=== PATIENT | male | born 1985 | race Caucasian/White ===

== ENCOUNTER 2016-12-03 18:00 | Emergency (ER) | payer OTHER ==
[~2016-12-03] VITALS: Wt 61.2 kg
[~2016-12-03 18:00] MED LIST: AMOXICILLIN500 MG PO; BENADRYL25 MG PO; CLONIDINE HCL0.1 MG; FIORICET 50-301 EACH PO; HALDOL0.5 MG; LITHIUM CARBON300 MG; MOTRIN800 MG PO; NAPROSYN500 MG PO; NKHM; NORCO 325 MG-51 TAB PO; TESSALON PERLE200 MG PO; VIBRAMYCIN100 MG PO; ZITHROMAX Z PA250 MG PO
[2016-12-03] MEDS ORDERED: SILVADENE20 GM T (19:26)
[2016-12-03] MEDS ORDERED: NORCO 5-325 TA1 EACH PO (19:26)
[2016-12-03] MEDS ORDERED: SILVADENE,SSD C50 GM T (19:28)
== END 2016-12-03 18:42 | disposition home or self-care (01) ==
LOC: ED 18:00
DX: T23.272A Burn of second degree of left wrist, initial encounter (principal); F17.200 Nicotine dependence, unspecified, uncomplicated; X12.XXXA Contact with other hot fluids, initial encounter; Y93.G3 Activity, cooking and baking; Y92.098 Other place in other non-institutional residence as the place of occurrence of the external cause; Y99.9 Unspecified external cause status

== ENCOUNTER 2016-12-06 21:45 | Emergency (ER) | payer OTHER ==
[~2016-12-06] VITALS: Ht 170.1 cm; Wt 61.2 kg
[~2016-12-06 21:45] MED LIST changes: -CEPHALEXIN500 M1 PO
[2016-12-06 22:36] LABS: BASO % 0.3 % (0.0-1.0); EOS # 0.1 10*3/uL (0.0-0.4); HEMATOCRIT 45.7 % (42.0-52.0); HEMOGLOBIN 16.2 g/dl (14.0-18.0); LYMPH # 3.1 10*3/uL (1.3-4.4); LYMPH % 25.7 % (27.0-41.0); MEAN CELL VOLUME 88.6 fl (80.0-94.0); MEAN CORPUSCULAR HGB 31.4 pg (27.0-31.0); MEAN CORPUSCULAR HGB CONC 35.4 g/dl (33.0-37.0); MEAN PLATELET VOLUME 10.2 fl (9.6-12.3); MONO # 0.9 10*3/uL (0.1-1.0); MONO % 7.2 % (3.0-9.0); NEUT # 7.9 10*3/uL (2.3-7.9); NEUT % 65.4 % (47.0-73.0); PLATELET COUNT AUTOMATED 213 10*3/uL (130-400); RED BLOOD COUNT 5.16 10*6/uL (4.50-5.90); RED CELL DISTRI WIDTH 12.3 % (0-14.5); WHITE BLOOD COUNT 12.1 10*3/uL (4.8-10.8)
[2016-12-06 22:49] LABS: ALBUMIN 4.2 gm/dl (3.1-4.5); ALKALINE PHOSPHATASE 74 U/L (45-117); BUN 14 mg/dl (7-24); CHLORIDE 104 mmol/L (98-107); CREATININE 1.05 mg/dL (0.70-1.30); POTASSIUM 4.7 mmol/L (3.5-5.1); SGOT/AST 16 IU/L (3-35); SGPT/ALT 17 U/L (12-78); SODIUM 139 mmol/L (136-145)
[2016-12-06] MEDS ORDERED: CEPHALEXIN500 M1 PO (23:03)
== END 2016-12-06 23:28 | disposition home or self-care (01) ==
LOC: ED 21:45
PROVIDERS: Nurse Practitioner Family
DX: T23.072D Burn of unspecified degree of left wrist, subsequent encounter (principal); F17.200 Nicotine dependence, unspecified, uncomplicated; F31.9 Bipolar disorder, unspecified; F25.9 Schizoaffective disorder, unspecified; X10.2XXD Contact with fats and cooking oils, subsequent encounter

== ENCOUNTER → 2016-12-06 | Outpatient (CLI) | payer OTHER ==
[~2016-12-06] MED LIST changes: +CEPHALEXIN500 M1 PO; +NORCO 5-325 TA1 EACH PO; +SILVADENE,SSD C50 GM T; +SILVADENE20 GM T
[2016-12-06 15:16] LABS: BASO # 0.1 10*3/uL (0.0-0.1); BASO % 0.4 % (0.0-1.0); EOS # 0.1 10*3/uL (0.0-0.4); EOS % 1.1 % (1.0-4.0); HEMATOCRIT 44.4 % (42.0-52.0); HEMOGLOBIN 15.9 g/dl (14.0-18.0); LYMPH # 2.1 10*3/uL (1.3-4.4); LYMPH % 18.1 % (27.0-41.0); MEAN CELL VOLUME 90.1 fl (80.0-94.0); MEAN CORPUSCULAR HGB 32.3 pg (27.0-31.0); MEAN CORPUSCULAR HGB CONC 35.8 g/dl (33.0-37.0); MEAN PLATELET VOLUME 10.4 fl (9.6-12.3); MONO # 0.6 10*3/uL (0.1-1.0); MONO % 4.8 % (3.0-9.0); NEUT # 8.8 10*3/uL (2.3-7.9); NEUT % 75.3 % (47.0-73.0); PLATELET COUNT AUTOMATED 182 10*3/uL (130-400); RED BLOOD COUNT 4.93 10*6/uL (4.50-5.90); RED CELL DISTRI WIDTH 12.4 % (0-14.5); WHITE BLOOD COUNT 11.7 10*3/uL (4.8-10.8)
[2016-12-06 15:54] LABS: ALKALINE PHOSPHATASE 73 U/L (45-117); BUN 16 mg/dl (7-24); CHLORIDE 105 mmol/L (98-107); CREATININE 1.04 mg/dL (0.70-1.30); POTASSIUM 4.3 mmol/L (3.5-5.1); SGOT/AST 17 IU/L (3-35); SGPT/ALT 19 U/L (12-78); SODIUM 139 mmol/L (136-145); TOTAL PROTEIN 7.6 gm/dL (6.4-8.2)
[2016-12-06 16:01] LABS: VITAMIN D, 25-HYDROXY 16.5 ng/mL (30-100)
== END | disposition home or self-care (01) ==
LOC: LAB 14:50
PROVIDERS: Physician Assistant
DX: Z51.81 Encounter for therapeutic drug level monitoring (principal); E55.9 Vitamin D deficiency, unspecified; Z79.899 Other long term (current) drug therapy

== ENCOUNTER 2018-04-06 21:22 | Emergency (ER) | payer OTHER ==
[~2018-04-06] VITALS: Ht 170.1 cm; Wt 61.2 kg
[~2018-04-06 21:22] MED LIST changes: +CEPHALEXIN500 M1 PO; +TESSALON PERLE100 MG PO; +ZITHROMAX250 MG PO
[2018-04-06] MEDS ORDERED: COGENTIN0.5 MG PO (22:51)
== END 2018-04-06 23:15 | disposition home or self-care (01) ==
LOC: ED 21:22
DX: G25.9 Extrapyramidal and movement disorder, unspecified (principal); Z79.2 Long term (current) use of antibiotics; Z79.899 Other long term (current) drug therapy

== ENCOUNTER 2020-07-29 10:27 | Emergency (ER) | payer OTHER ==
[~2020-07-29] VITALS: Wt 60.3 kg
[~2020-07-29 10:27] MED LIST changes: +COGENTIN0.5 MG PO
[2020-07-29 11:28] LABS: BASO # 0.1 10*3/uL (0.0-0.1); BASO % 0.6 % (0.0-1.0); EOS # 0.1 10*3/uL (0.0-0.4); EOS % 1.1 % (1.0-4.0); HEMATOCRIT 41.4 % (42.0-52.0); LYMPH % 30.5 % (27.0-41.0); MEAN CELL VOLUME 88.5 fl (80.0-94.0); MEAN CORPUSCULAR HGB 31.2 pg (27.0-31.0); MEAN CORPUSCULAR HGB CONC 35.3 g/dl (33.0-37.0); MEAN PLATELET VOLUME 10.8 fl (9.6-12.3); MONO # 0.9 10*3/uL (0.1-1.0); MONO % 9.5 % (3.0-9.0); NEUT # 5.6 10*3/uL (2.3-7.9); PLATELET COUNT AUTOMATED 229 10*3/uL (130-400); RED BLOOD COUNT 4.68 10*6/uL (4.50-5.90); RED CELL DISTRI WIDTH 12.4 % (0-14.5); WHITE BLOOD COUNT 9.7 10*3/uL (4.8-10.8)
[2020-07-29 12:04] LABS: ALBUMIN 3.5 gm/dl (3.1-4.5); ALKALINE PHOSPHATASE 80 U/L (45-117); BUN 17 mg/dl (7-24); CHLORIDE 109 mmol/L (98-107); CREATININE 0.99 mg/dL (0.70-1.30); POTASSIUM 3.8 mmol/L (3.5-5.1); SGOT/AST 20 IU/L (3-35); SGPT/ALT 24 U/L (12-78); SODIUM 139 mmol/L (136-145)
[2020-07-29 12:05] LABS: TROPONIN I < 0.015 ng/ml (<0.045)
[2020-07-29] MEDS ORDERED: ZITHROMAX250 MG PO ×2 (14:16→14:18)
[2020-07-29] MEDS ORDERED: PREDNISONE20 M1 PO ×2 (14:16→14:18)
== END 2020-07-29 14:29 | disposition home or self-care (01) ==
LOC: ED 10:27
PROVIDERS: Physician Assistant
DX: J40 Bronchitis, not specified as acute or chronic (principal); Z79.2 Long term (current) use of antibiotics; Z79.899 Other long term (current) drug therapy

== ENCOUNTER 2020-10-10 18:57 | Emergency (ER) | payer OTHER ==
[~2020-10-10] VITALS: Ht 170.1 cm; Wt 72.6 kg
[~2020-10-10 18:57] MED LIST changes: +PREDNISONE20 M1 PO
[2020-10-10 20:17] LABS: BASO # 0.1 10*3/uL (0.0-0.1); BASO % 0.4 % (0.0-1.0); EOS % 0.1 % (1.0-4.0); HEMATOCRIT 45.5 % (42.0-52.0); LYMPH # 1.7 10*3/uL (1.3-4.4); LYMPH % 11.6 % (27.0-41.0); MEAN CELL VOLUME 88.2 fl (80.0-94.0); MEAN CORPUSCULAR HGB CONC 35.2 g/dl (33.0-37.0); MEAN PLATELET VOLUME 11.3 fl (9.6-12.3); MONO # 0.4 10*3/uL (0.1-1.0); MONO % 2.6 % (3.0-9.0); NEUT # 12.5 10*3/uL (2.3-7.9); PLATELET COUNT AUTOMATED 242 10*3/uL (130-400); RED BLOOD COUNT 5.16 10*6/uL (4.50-5.90); RED CELL DISTRI WIDTH 12.4 % (0-14.5); WHITE BLOOD COUNT 14.7 10*3/uL (4.8-10.8)
[2020-10-10 20:25] LABS: URINE AMPHETAMINES < 1000 (1000ng/ml); URINE BARBITURATES < 200 (200ng/ml); URINE BENZODIAZEPINES < 200 (200ng/ml); URINE CANNABINOIDS (THC) > 50 (50ng/ml); URINE COCAINE < 300 (300ng/ml); URINE METHADONE < 300 (300ng/ml); URINE OPIATES < 300 (300ng/ml)
[2020-10-10 20:30] LABS: URINE PHENCYCLIDINE < 25 (25ng/ml)
[2020-10-10 20:31] LABS: ACETAMINOPHEN (TYLENOL) < 5.0 ug/ml (10-30); ALBUMIN 4.3 gm/dl (3.1-4.5); ALKALINE PHOSPHATASE 92 U/L (45-117); BUN 15 mg/dl (7-24); CHLORIDE 108 mmol/L (98-107); CREATININE 1.29 mg/dL (0.70-1.30); ETHYL ALCOHOL < 3.0 mg/dl (<3); POTASSIUM 3.8 mmol/L (3.5-5.1); SGOT/AST 28 IU/L (3-35); SGPT/ALT 39 U/L (12-78); SODIUM 139 mmol/L (136-145)
[2020-10-10 20:37] LABS: BILIRUBIN Negative (Negative); BLOOD Negative (Negative); CLARITY Clear (Clear); COLOR Yellow (Yellow); GLUCOSE Negative (Negative); KETONE Trace (Negative); LEUKO ESTERASE Negative (Negative); NITRITE Negative (Negative); SPECIFIC GRAVITY 1.025 (1.001-1.030)
[2020-10-10 20:48] LABS: BACTERIA TRACE; EPITHELIAL CELLS 0-2
[2020-10-11] MEDS ORDERED: LITHIUM CARBON150 MG PO (03:06)
[2020-10-11] MEDS ORDERED: 'CLONIDINE0.1 MG PO (03:06)
== END 2020-10-11 16:02 | disposition short-term general hospital (02) ==
LOC: ED 18:57
PROVIDERS: Emergency Medicine
DX: F43.21 Adjustment disorder with depressed mood (principal); Z20.822 Contact with and (suspected) exposure to COVID-19

== ENCOUNTER 2021-01-29 10:09 | Emergency (ER) | payer OTHER ==
[~2021-01-29] VITALS: Wt 70.3 kg
[~2021-01-29 10:09] MED LIST changes: +'CLONIDINE0.1 MG PO; +LITHIUM CARBON150 MG PO
== END 2021-01-29 14:08 | disposition left against medical advice (07) ==
LOC: ED 10:09
DX: Z53.21 Procedure and treatment not carried out due to patient leaving prior to being seen by health care provider (principal)

== ENCOUNTER 2022-11-29 13:10 | Emergency (ER) | payer OTHER ==
[~2022-11-29] VITALS: Ht 170.1 cm
[2022-11-29] MEDS ORDERED: AMOX-CLAV 875-1 EACH PO (13:51)
== END 2022-11-29 14:00 | disposition home or self-care (01) ==
LOC: ED 13:10
DX: J32.9 Chronic sinusitis, unspecified (principal); B96.89 Other specified bacterial agents as the cause of diseases classified elsewhere; K08.89 Other specified disorders of teeth and supporting structures; K21.9 Gastro-esophageal reflux disease without esophagitis; F31.9 Bipolar disorder, unspecified; Z87.891 Personal history of nicotine dependence

== ENCOUNTER 2024-04-16 14:59 | Emergency (ER) | payer SELFPAY ==
[~2024-04-16] VITALS: Ht 177.8 cm; Wt 61.7 kg
[~2024-04-16 14:59] MED LIST changes: +AMOX-CLAV 875-1 EACH PO
== END 2024-04-16 16:13 | disposition left against medical advice (07) ==
LOC: ED 14:59
DX: M79.604 Pain in right leg (principal); R42 Dizziness and giddiness; F31.9 Bipolar disorder, unspecified; K21.9 Gastro-esophageal reflux disease without esophagitis; Z53.29 Procedure and treatment not carried out because of patient's decision for other reasons; Z87.891 Personal history of nicotine dependence